=== PATIENT | female | born 1965 | race Caucasian/White ===

== ENCOUNTER 2017-01-03 23:37 | Emergency (ER) | payer SELFPAY ==
--- NOTE | 2017-01-05 04:53 | ER ---
ADMIT: 01/03/2017 RM/LOC: ER [facility] MR#: [id number] [address] [facility] [address] [place] [id number] STEPHANIE AHMADI [address] [place], [place] [id number] Emergency Room Report SEX: F AGE: 51 : 1965 DATE: 01/03/2017 CHIEF COMPLAINT: Abdominal pain. HISTORY OF PRESENT ILLNESS: The patient is a 51-year-old female, who presents to the ER complaining of approximately 5 hours of severe right-sided abdominal pain. She actually states this started on her right side and then wrapped around her right side into her abdomen. She has had some nausea, but no vomiting. The pain does seem to come in waves since onset. She denies any problems with urination. She states she has not had any blood in her stools, dark tarry stools, or constipation or diarrhea. She has not had symptoms like this in the past. She does have a history of gastric bypass years ago. The patient denies ever having problems with her gallbladder or kidney stones that she is aware of. REVIEW OF SYSTEMS: See T-sheet. PAST MEDICAL HISTORY: She does have a history of iron-deficiency anemia. PREVIOUS SURGERIES: Gastric bypass and a back fusion. MEDICATIONS: None. ALLERGIES: ADVIL. PHYSICAL EXAMINATION: See T-sheet for complete physical exam. The patient is alert. She does appear to be quite uncomfortable when she first presents. She has some right flank tenderness and right upper quadrant tenderness on examination, but her belly is soft. Bowel sounds are active. CT abdomen and pelvis is reported as negative per the virtual Radiology, but I have some concerns that her gallbladder is on the large side of normal. LABORATORY DATA: Shows that she is anemic with a hemoglobin of 7.9, but she states that it is not new for her. She is not having elevated white blood cell count. Her AST is elevated at 328, ALT is 137. Urinalysis shows no abnormalities other than 4.0 urobilinogen and 10 red blood cells. Urine is negative. EMERGENCY DEPARTMENT COURSE: The patient received 1 L of normal saline, 4 of ADMIT: 01/03/2017 RM/LOC: ER [facility] MR#: [id number] [address] [facility] [address] [place], [place] [id number] [facility] AHMADISpring Vilchis [address] [place] [id number] Emergency Room Report SEX: F AGE: 51 : 1965 Zofran IV for nausea, 15 of Toradol IV for pain, and 4 of morphine. Her symptoms were completely resolved while in the ER. The patient does not have a regular physician, and I am concerned if this being her gallbladder. I have set her up to get an outpatient ultrasound done, and she is to follow up with Dr. Bowen's office once the ultrasound is done. She is to avoid any fatty foods and return to the ER for any worsening or concerning symptoms. DIAGNOSES: 1. Abdominal pain. 2. Elevated liver enzymes. 3. Chronic anemia. Georges Manley MD/ ester JOB #: [id number] CC: Georges Manley MD, Attending Physician
== END 2017-01-04 02:23 | disposition home or self-care (01) ==
LOC: EDBD 23:37 → ER 23:37
DX: R10.11 Right upper quadrant pain (principal); R94.5 Abnormal results of liver function studies; D64.9 Anemia, unspecified; Z98.890 Other specified postprocedural states; Z87.891 Personal history of nicotine dependence; Z88.6 Allergy status to analgesic agent